=== PATIENT | female | born 1955 | race Two or more races ===

== ENCOUNTER 2024-03-23 19:48 | Inpatient (IN) | payer OTHER ==
[~2024-03-23] VITALS: Ht 165.1 cm; Wt 83.5 kg
[2024-03-23 20:24] LABS: BASOPHILS # (AUTO) 0.1 K/uL (0.0-0.2); BASOPHILS % (AUTO) 0.4 % (0.0-2.0); EOSINOPHILS # (AUTO) 0.2 K/uL (0.0-0.7); HEMATOCRIT 26 % (33-45); HEMOGLOBIN 8.7 g/dL (11.5-14.8); LYMPHOCYTES # (AUTO) 0.8 K/uL (0.8-4.8); LYMPHOCYTES % (AUTO) 5.2 % (20.0-44.0); MEAN CORPUSCULAR HEMOGLOBIN 33 PG (26.0-33.0); MEAN CORPUSCULAR HGB CONC 33 g/dl (31.0-36.0); MEAN CORPUSCULAR VOLUME 98 fL (82-100); MONOCYTES # (AUTO) 0.9 K/uL (0.1-1.30); MONOCYTES % (AUTO) 5.6 % (2.0-12.0); NEUTROPHILS # (AUTO) 13.8 K/uL (1.8-8.9); NEUTROPHILS % (AUTO) 87.8 % (43.0-81.0); PLATELET COUNT (AUTO) 257 K/uL (150-450); RED BLOOD CELL COUNT(AUTO) 2.65 MIL/uL (4.0-5.2); RED CELL DISTRIBUTION WIDTH 17.9 % (11.5-15.0); WHITE BLOOD COUNT (AUTO) 15.7 K/uL (4.3-11.0)
[2024-03-23 20:37] LABS: PARTIAL THROMBOPLASTIN TIME 23.5 SEC (24.3-34.3); PROTHROMBIN TIME 10.6 SECS (9.2-11.1)
[2024-03-23 20:44] LABS: LACTIC ACID 0.6 mmol/L (0.4-2.0)
[2024-03-23 20:46] LABS: ALANINE AMINOTRANSFERASE 19 U/L (12-78); ALBUMIN 3.4 g/dL (3.4-5.0); ALKALINE PHOSPHATASE 80 U/L (46-116); ASPARTATE AMINOTRANSFERASE 14 U/L (15-37); BILIRUBIN,DIRECT 0.2 mg/dL (0.0-0.2); BILIRUBIN,TOTAL 0.4 mg/dL (0.2-1.0); CALCIUM, SERUM 11.1 mg/dL (8.5-10.1); CARBON DIOXIDE 30 mmol/L (21-32); CHLORIDE 80 mmol/L (98-107); CREATININE 7.2 mg/dL (0.6-1.3); GLUCOSE 206 mg/dL (74-106); NT-PRO BNP 6587 pg/mL (0-125); SODIUM SERUM 121 mmol/L (136-145); TOTAL PROTEIN, SERUM 7.2 g/dL (6.4-8.2)
[2024-03-23 20:52] LABS: POTASSIUM 6.6 mmol/L (3.5-5.1)
[2024-03-23 20:53] LABS: UREA NITROGEN, BLOOD 215 mg/dL (7-18)
[2024-03-23 20:58] LABS: ABG BASE EXCESS -1.5 mmol/L (-2.0-3.0); ABG OXYGEN SATURATION 98.1 % (94.0-98.0); ABG PCO2 61.2 mmHg (32.0-45.0); ABG PO2 124.3 mmHg (83.0-108.0); ABG TOTAL HEMOGLOBIN 9.4 G/dL (12.0-16.0); COHb 0.1 % (0.5-1.5); MetHb 0.3 % (0.0-1.5); O2Hb 97.7 % (94.0-97.0); SITE, ABG LEFT RADIAL
[2024-03-23] MEDS ORDERED: CALCIUM CHLORIDE 1,000 MG/10 ML DISP.SYRIN ONE (21:56)
[2024-03-23] MEDS ORDERED: INSULIN REGULAR, HUMAN 100 UNIT/ML 10 ML VIAL ONE (21:56)
[2024-03-23] MEDS ORDERED: SODIUM ZIRCONIUM CYCLOSILICATE 10 GM POWD.PACK ONE (21:57)
[2024-03-23] MEDS: CALCIUM CHLORIDE 1,000 MG/10 ML DISP.SYRIN IV ONE (22:03)
[2024-03-23] MEDS: SODIUM ZIRCONIUM CYCLOSILICATE 10 GM POWD.PACK PO ONE (22:03)
[2024-03-23] MEDS: INSULIN REGULAR, HUMAN 100 UNIT/ML 10 ML VIAL IV ONE (22:16)
[2024-03-23] MEDS ORDERED: ONDANSETRON HCL/PF 4 MG/2 ML VIAL IVP PRN (22:30)
[2024-03-23] MEDS ORDERED: ALBUTEROL FS 2.5 MG/3 ML VIAL.NEB NEB PRN (22:30)
[2024-03-23] MEDS ORDERED: IPRATROPIUM NEB FS 0.5 MG/2.5 ML AMPUL.NEB NEB PRN (22:30)
[2024-03-23] MEDS ORDERED: MAGNESIUM HYDROXIDE 30 ML UDC PO PRN (22:30)
[2024-03-23] MEDS ORDERED: Z GUARD REMEDY 4 OZ OINT TP PRN (22:30)
[2024-03-23] MEDS ORDERED: MAG HYDROX/AL HYDROX/SIMETH 30 ML UDC PO PRN (22:30)
[2024-03-23] MEDS ORDERED: ZOLPIDEM TARTRATE 5 MG TABLET PO PRN (22:30)
[2024-03-23] MEDS ORDERED: DEXTROSE 50%-WATER 50 ML DISP.SYRIN IV PRN (22:30)
[2024-03-23] MEDS ORDERED: PANT40TA2 GT (22:33)
[2024-03-23] MEDS ORDERED: QUET25TA GT (22:33)
[2024-03-23] MEDS ORDERED: GABA-532 GT (22:33)
[2024-03-23] MEDS ORDERED: ASPI-1169 GT (22:33)
[2024-03-23] MEDS ORDERED: ATOR40TA GT (22:33)
[2024-03-23] MEDS ORDERED: CARV3.122 GT (22:33)
[2024-03-23] MEDS ORDERED: FOLI0.8T2 GT (22:33)
[2024-03-23] MEDS ORDERED: LEVE100S GT (22:33)
[2024-03-23] MEDS ORDERED: [UNRECOGNIZED DRUG - CODE] SQ (22:33)
[2024-03-23] MEDS ORDERED: VALP250S3 GT (22:33)
[2024-03-23] MEDS ORDERED: FLUO20CA42 GT (22:33)
[2024-03-23] MEDS ORDERED: CINA30TA6 GT (22:33)
[2024-03-23] MEDS ORDERED: INSU100V7 SQ (22:33)
[2024-03-23] MEDS ORDERED: LOSA25TA27 GT (22:33)
[2024-03-23] MEDS ORDERED: INSU100V39 SQ (22:33)
[2024-03-23 23:11] VITALS: BP 179/53; O2SAT 100
[2024-03-23 23:15] VITALS: BP 168/51; O2SAT 100
[2024-03-23 23:30] VITALS: BP 172/53; O2SAT 98
[2024-03-23] MEDS: PANTOPRAZOLE 40 MG VIAL IV SCH (23:32)
[2024-03-23 23:45] VITALS: BP 152/46; O2SAT 97
[2024-03-24] VITALS (52 sets, daily range): BP systolic 75–214; BP diastolic 33–91; TEMP 97.7–98.8; O2SAT 90–100
[2024-03-24] MEDS ORDERED: CEFEPIME 1 GM VIAL ONE (00:25)
[2024-03-24] MEDS: NOREPINEPHRINE 32 MG in IV NS 0.9% 218 ML IV PRN (00:42)
[2024-03-24] MEDS: BLOOD SUGAR DIAGNOSTIC 1 EACH STRIP IN SCH (00:54)
[2024-03-24] MEDS: NOREPINEPHRINE 4 MG/4 ML AMPUL IV ONE (00:55)
[2024-03-24] MEDS: CEFEPIME 1 GM in IV D5W 50 ML IV SCH ×2 (02:23→23:45)
[2024-03-24 05:07] LABS: BASOPHILS # (AUTO) 0.1 K/uL (0.0-0.2); BASOPHILS % (AUTO) 0.4 % (0.0-2.0); EOSINOPHILS # (AUTO) 0.3 K/uL (0.0-0.7); EOSINOPHILS % (AUTO) 1.9 % (0.0-6.0); HEMATOCRIT 25 % (33-45); HEMOGLOBIN 8.2 g/dL (11.5-14.8); LYMPHOCYTES # (AUTO) 0.4 K/uL (0.8-4.8); LYMPHOCYTES % (AUTO) 2.4 % (20.0-44.0); MEAN CORPUSCULAR HEMOGLOBIN 32 PG (26.0-33.0); MEAN CORPUSCULAR HGB CONC 33 g/dl (31.0-36.0); MEAN CORPUSCULAR VOLUME 98 fL (82-100); MONOCYTES # (AUTO) 1.6 K/uL (0.1-1.30); MONOCYTES % (AUTO) 9.3 % (2.0-12.0); NEUTROPHILS # (AUTO) 14.9 K/uL (1.8-8.9); PLATELET COUNT (AUTO) 172 K/uL (150-450); RED BLOOD CELL COUNT(AUTO) 2.53 MIL/uL (4.0-5.2); RED CELL DISTRIBUTION WIDTH 17.8 % (11.5-15.0); WHITE BLOOD COUNT (AUTO) 17.3 K/uL (4.3-11.0)
[2024-03-24 05:24] LABS: CALCIUM, SERUM 10.4 mg/dL (8.5-10.1); MAGNESIUM 2.6 mg/dL (1.8-2.4); PHOSPHORUS 4.8 mg/dL (2.5-4.9); POTASSIUM 4.1 mmol/L (3.5-5.1)
[2024-03-24 05:35] LABS: THYROID STIMULATING HORMONE 2.3 uIU/mL (0.358-3.74)
[2024-03-24] MEDS ORDERED: HEPA50007 SQ (07:51)
[2024-03-24 08:42] LABS: ABG BASE EXCESS 1.3 mmol/L (-2.0-3.0); ABG OXYGEN SATURATION 95.8 % (94.0-98.0); ABG PCO2 49.1 mmHg (32.0-45.0); ABG PO2 86.4 mmHg (83.0-108.0); ABG TOTAL HEMOGLOBIN 8.8 G/dL (12.0-16.0); COHb 0.2 % (0.5-1.5); MetHb 0.1 % (0.0-1.5); O2Hb 95.5 % (94.0-97.0); SITE, ABG RIGHT RADIAL
[2024-03-24] MEDS: ALBUTEROL FS 2.5 MG/3 ML VIAL.NEB IH SCH (09:00)
[2024-03-24] MEDS: IPRATROPIUM NEB FS 0.5 MG/2.5 ML AMPUL.NEB IH SCH (09:00)
[2024-03-24] MEDS: HEPARIN SODIUM, PORCINE 5000 UNITS/1 ML VIAL SQ SCH (09:26)
[2024-03-24] MEDS: VANCOMYCIN 1 GM in IV D5W 250ml IV ONE ×2 (10:07→11:22)
[2024-03-24] MEDS: INSULIN REGULAR, HUMAN 100 UNIT/ML 3 ML VIAL SQ PRN (12:16)
[2024-03-24] MEDS: hydrALAZINE HCL IV 20 MG VIAL IV PRN (20:16)
[2024-03-25] VITALS (33 sets, daily range): BP systolic 99–177; BP diastolic 39–95; TEMP 97.3–98.7; O2SAT 95–100
[2024-03-25] MEDS: HYDROCODONE/APAP 5/325MG TABLET PO PRN (02:26)
[2024-03-25 05:09] LABS: HEPATITIS Be AG Negative (Negative)
[2024-03-25] MEDS: IV NS 0.9% 250 ML IV PRN (05:14)
[2024-03-25 06:11] LABS: HEPATITIS B SURFACE AB Reactive (.)
[2024-03-25 06:55] LABS: CALCIUM, SERUM 10.1 mg/dL (8.5-10.1); POTASSIUM 3.6 mmol/L (3.5-5.1)
[2024-03-25 07:23] LABS: BASOPHILS % (AUTO) 0.2 % (0.0-2.0); EOSINOPHILS # (AUTO) 0.1 K/uL (0.0-0.7); EOSINOPHILS % (AUTO) 0.7 % (0.0-6.0); LYMPHOCYTES # (AUTO) 0.6 K/uL (0.8-4.8); LYMPHOCYTES % (AUTO) 4.6 % (20.0-44.0); MEAN CORPUSCULAR HEMOGLOBIN 33 PG (26.0-33.0); MEAN CORPUSCULAR HGB CONC 33 g/dl (31.0-36.0); MEAN CORPUSCULAR VOLUME 98 fL (82-100); MONOCYTES # (AUTO) 1.6 K/uL (0.1-1.30); MONOCYTES % (AUTO) 11.6 % (2.0-12.0); NEUTROPHILS # (AUTO) 11.2 K/uL (1.8-8.9); NEUTROPHILS % (AUTO) 82.9 % (43.0-81.0); PLATELET COUNT (AUTO) 206 K/uL (150-450); RED BLOOD CELL COUNT(AUTO) 2.21 MIL/uL (4.0-5.2); RED CELL DISTRIBUTION WIDTH 18.4 % (11.5-15.0); WHITE BLOOD COUNT (AUTO) 13.5 K/uL (4.3-11.0)
[2024-03-25 07:42] LABS: HEMATOCRIT 22 % (33-45); HEMOGLOBIN 7.2 g/dL (11.5-14.8)
[2024-03-25 08:42] LABS: ABG BASE EXCESS 5.8 mmol/L (-2.0-3.0); ABG OXYGEN SATURATION 97.2 % (94.0-98.0); ABG PCO2 46.8 mmHg (32.0-45.0); ABG PH 7.434 (7.350-7.450); ABG TOTAL HEMOGLOBIN 8.4 G/dL (12.0-16.0); COHb 0.3 % (0.5-1.5); MetHb 0.3 % (0.0-1.5); O2Hb 96.6 % (94.0-97.0); SITE, ABG RIGHT RADIAL
[2024-03-25] MEDS ORDERED: NEPRO 1,000 ML BOTTLE GT SCH (12:00)
[2024-03-25] MEDS: NEPRO 1,000 ML BOTTLE GT SCH (17:22)
[2024-03-25 21:21] LABS: HEMOGLOBIN 7.1 g/dL (11.5-14.8)
[2024-03-26] VITALS (26 sets, daily range): BP systolic 126–186; BP diastolic 39–94; TEMP 97.5–99.5; O2SAT 83–100
[2024-03-26 04:57] LABS: BASOPHILS # (AUTO) 0.1 K/uL (0.0-0.2); BASOPHILS % (AUTO) 0.6 % (0.0-2.0); EOSINOPHILS # (AUTO) 0.5 K/uL (0.0-0.7); EOSINOPHILS % (AUTO) 3.7 % (0.0-6.0); HEMATOCRIT 23 % (33-45); HEMOGLOBIN 7.4 g/dL (11.5-14.8); LYMPHOCYTES # (AUTO) 0.7 K/uL (0.8-4.8); LYMPHOCYTES % (AUTO) 5.8 % (20.0-44.0); MEAN CORPUSCULAR HEMOGLOBIN 32 PG (26.0-33.0); MEAN CORPUSCULAR HGB CONC 33 g/dl (31.0-36.0); MEAN CORPUSCULAR VOLUME 98 fL (82-100); MONOCYTES # (AUTO) 1.4 K/uL (0.1-1.30); MONOCYTES % (AUTO) 10.7 % (2.0-12.0); NEUTROPHILS # (AUTO) 10.3 K/uL (1.8-8.9); NEUTROPHILS % (AUTO) 79.2 % (43.0-81.0); PLATELET COUNT (AUTO) 262 K/uL (150-450); RED BLOOD CELL COUNT(AUTO) 2.33 MIL/uL (4.0-5.2); RED CELL DISTRIBUTION WIDTH 18.9 % (11.5-15.0)
[2024-03-26 05:29] LABS: CALCIUM, SERUM 11.2 mg/dL (8.5-10.1); CREATININE 2.8 mg/dL (0.6-1.3); MAGNESIUM 2.5 mg/dL (1.8-2.4); PHOSPHORUS 3.7 mg/dL (2.5-4.9); POTASSIUM 3.5 mmol/L (3.5-5.1)
[2024-03-26] MEDS: PANTOPRAZOLE 40 MG/PACK PACK GT SCH (08:54)
[2024-03-26] MEDS: methylPREDNISolone SOD SUCC 125 MG/2ML VIAL IV SCH (09:11)
[2024-03-26] MEDS: ACETAMINOPHEN 325 MG TABLET PO PRN (18:54)
[2024-03-26 20:23] LABS: HEMOGLOBIN 7.7 g/dL (11.5-14.8)
[2024-03-27] VITALS (14 sets, daily range): BP systolic 103–141; BP diastolic 50–95; TEMP 98.1–98.6; O2SAT 91–100
[2024-03-27 01:11] LABS: HEPATITIS Be AB Non Reactive (Negative)
[2024-03-27 07:38] LABS: BASOPHILS % (AUTO) 0.1 % (0.0-2.0); HEMATOCRIT 25 % (33-45); LYMPHOCYTES # (AUTO) 0.5 K/uL (0.8-4.8); LYMPHOCYTES % (AUTO) 5.5 % (20.0-44.0); MEAN CORPUSCULAR HEMOGLOBIN 32 PG (26.0-33.0); MEAN CORPUSCULAR HGB CONC 33 g/dl (31.0-36.0); MEAN CORPUSCULAR VOLUME 98 fL (82-100); MONOCYTES # (AUTO) 0.8 K/uL (0.1-1.30); MONOCYTES % (AUTO) 8.5 % (2.0-12.0); NEUTROPHILS # (AUTO) 8.1 K/uL (1.8-8.9); NEUTROPHILS % (AUTO) 85.9 % (43.0-81.0); PLATELET COUNT (AUTO) 281 K/uL (150-450); RED CELL DISTRIBUTION WIDTH 18.4 % (11.5-15.0); WHITE BLOOD COUNT (AUTO) 9.4 K/uL (4.3-11.0)
[2024-03-27 08:09] LABS: CALCIUM, SERUM 11.9 mg/dL (8.5-10.1); CREATININE 3.8 mg/dL (0.6-1.3); MAGNESIUM 2.7 mg/dL (1.8-2.4); PHOSPHORUS 4.5 mg/dL (2.5-4.9); POTASSIUM 3.9 mmol/L (3.5-5.1)
[2024-03-27 20:22] LABS: HEMOGLOBIN 7.5 g/dL (11.5-14.8)
[2024-03-28] VITALS (18 sets, daily range): BP systolic 111–174; BP diastolic 57–98; TEMP 98–98.7; O2SAT 90–100
[2024-03-28 07:48] LABS: BASOPHILS % (AUTO) 0.1 % (0.0-2.0); EOSINOPHILS % (AUTO) 0.1 % (0.0-6.0); HEMATOCRIT 25 % (33-45); LYMPHOCYTES # (AUTO) 0.8 K/uL (0.8-4.8); LYMPHOCYTES % (AUTO) 5.1 % (20.0-44.0); MEAN CORPUSCULAR HEMOGLOBIN 32 PG (26.0-33.0); MEAN CORPUSCULAR HGB CONC 32 g/dl (31.0-36.0); MEAN CORPUSCULAR VOLUME 101 fL (82-100); MONOCYTES # (AUTO) 1.2 K/uL (0.1-1.30); MONOCYTES % (AUTO) 7.3 % (2.0-12.0); NEUTROPHILS # (AUTO) 14.3 K/uL (1.8-8.9); NEUTROPHILS % (AUTO) 87.4 % (43.0-81.0); PLATELET COUNT (AUTO) 337 K/uL (150-450); RED BLOOD CELL COUNT(AUTO) 2.49 MIL/uL (4.0-5.2); RED CELL DISTRIBUTION WIDTH 18.6 % (11.5-15.0); WHITE BLOOD COUNT (AUTO) 16.3 K/uL (4.3-11.0)
[2024-03-28 08:01] LABS: CALCIUM, SERUM 11.4 mg/dL (8.5-10.1); CREATININE 4.5 mg/dL (0.6-1.3)
[2024-03-28] MEDS: VANCOMYCIN POST DIALYSIS 500MG IV PRN (17:45)
[2024-03-29] VITALS: BP 145/74; TEMP 98.1; O2SAT 94
[2024-03-29 04:00] VITALS: BP 149/77; TEMP 98.1; O2SAT 94
[2024-03-29 07:27] LABS: EOSINOPHILS # (AUTO) 0.2 K/uL (0.0-0.7); EOSINOPHILS % (AUTO) 1.3 % (0.0-6.0); HEMATOCRIT 25 % (33-45); HEMOGLOBIN 8.2 g/dL (11.5-14.8); LYMPHOCYTES # (AUTO) 1.2 K/uL (0.8-4.8); LYMPHOCYTES % (AUTO) 8.7 % (20.0-44.0); MEAN CORPUSCULAR HEMOGLOBIN 33 PG (26.0-33.0); MEAN CORPUSCULAR HGB CONC 33 g/dl (31.0-36.0); MEAN CORPUSCULAR VOLUME 102 fL (82-100); MONOCYTES # (AUTO) 1.2 K/uL (0.1-1.30); MONOCYTES % (AUTO) 8.6 % (2.0-12.0); NEUTROPHILS # (AUTO) 11.1 K/uL (1.8-8.9); NEUTROPHILS % (AUTO) 81.4 % (43.0-81.0); PLATELET COUNT (AUTO) 343 K/uL (150-450); RED CELL DISTRIBUTION WIDTH 18.5 % (11.5-15.0); WHITE BLOOD COUNT (AUTO) 13.6 K/uL (4.3-11.0)
[2024-03-29 07:41] LABS: CALCIUM, SERUM 10.5 mg/dL (8.5-10.1); CREATININE 3.3 mg/dL (0.6-1.3); POTASSIUM 3.5 mmol/L (3.5-5.1)
[2024-03-29 07:47] VITALS: O2SAT 91
[2024-03-29 08:00] VITALS: BP 154/41; TEMP 98.6; O2SAT 92; O2SAT 94
[2024-03-29] MEDS ORDERED: CEFE1FRO IV (09:39)
[2024-03-29 11:42] VITALS: O2SAT 92
[2024-03-29 11:53] VITALS: O2SAT 98
== END 2024-03-29 13:48 | DRG 425 ==
LOC: ER 19:51 → ICU 22:19 → TELE1 03-26 14:01 → MEDSG1 03-29 09:44
PROVIDERS: ADMIT Nurse Practitioner Acute Care; ATTEND Internal Medicine
PROC: 5A09457 Assistance with Respiratory Ventilation, 24-96 Consecutive Hours, Continuous Positive Airway Pressure (ICD-10-PCS; 2024-03-23)
PROC: 5A1D70Z Performance of Urinary Filtration, Intermittent, Less than 6 Hours Per Day (ICD-10-PCS; 2024-03-23)
PROC: 05H933Z Insertion of Infusion Device into Right Brachial Vein, Percutaneous Approach (ICD-10-PCS; principal; 2024-03-24)
DX: E87.70 Fluid overload, unspecified (principal); J96.01 Acute respiratory failure with hypoxia; G93.41 Metabolic encephalopathy; J15.69 Pneumonia due to other Gram-negative bacteria; N18.6 End stage renal disease; I12.0 Hypertensive chronic kidney disease with stage 5 chronic kidney disease or end stage renal disease; D63.8 Anemia in other chronic diseases classified elsewhere; E11.22 Type 2 diabetes mellitus with diabetic chronic kidney disease; E87.1 Hypo-osmolality and hyponatremia; E87.5 Hyperkalemia; Z86.73 Personal history of transient ischemic attack (TIA), and cerebral infarction without residual deficits; E78.5 Hyperlipidemia, unspecified; J96.02 Acute respiratory failure with hypercapnia; M89.8X9 Other specified disorders of bone, unspecified site; Z95.0 Presence of cardiac pacemaker; Z99.2 Dependence on renal dialysis; F32.A Depression, unspecified; Z68.33 Body mass index [BMI] 33.0-33.9, adult; E66.9 Obesity, unspecified; I25.10 Atherosclerotic heart disease of native coronary artery without angina pectoris; Y95 Nosocomial condition; I49.9 Cardiac arrhythmia, unspecified; F39 Unspecified mood [affective] disorder; I70.0 Atherosclerosis of aorta; Z79.4 Long term (current) use of insulin; Z79.82 Long term (current) use of aspirin; Z79.899 Other long term (current) drug therapy
CPT/HCPCS: 36415; 36600; 71045-TC; 80048-TC; 80061-TC; 80076-TC; 80202-TC; 82803-TC; 82962-TC; 83605-TC; 83735-TC; 83880; 83970; 84100-TC; 84443-TC; 84484-TC; 85025-TC; 85027-TC; 85730-TC; 86706; 86707; 87040-TC; 87081-TC; 87340; 87350; 90935-TC; 92526; 92611-TC; 93307-TC; 94660; 94760-TC; 94762-TC; 94799-TC; A4223; A6403; G0378; J0360; J0692; J1644; J1815; J2470; J2919; J3370; J3490; J7030; J7050; J7060